=== PATIENT | male | born 1960 | race African-American/Black ===

== ENCOUNTER 2018-10-28 21:36 | Inpatient (IN) | payer BC, OTHER ==
[~2018-10-28] VITALS: Ht 172.7 cm; Wt 88.0 kg
[~2018-10-28 21:36] MED LIST: LISI10TA5 PO
[2018-10-28] MEDS ORDERED: HYDROCODONE/ACETAMINOPHEN 5/325MG TABLET PO ONE (23:15)
[2018-10-29] MEDS ORDERED: KETOROLAC 30MG/ML VIAL IM ONE (00:45)
[2018-10-29] MEDS ORDERED: ASPIRIN 81MG TABLET PO ONE (03:45)
[2018-10-29 04:08] LABS: HEMATOCRIT. 41.7 % (42.0-52.0); HEMOGLOBIN. 13.9 g/dL (14.0-18.0); MEAN CORPUSCULAR HEMOGLOBIN 30.8 pg (28.0-32.0); MEAN CORPUSCULAR VOLUME 92.7 fL (80.0-94.0); MEAN PLATELET VOLUME 9.6 fl (7.4-10.4); PLATELET 165 x1000/uL (130-400); RED CELL DISTRIBUTION WIDTH 14.1 % (11.6-14.6)
[2018-10-29 04:16] LABS: CHLORIDE 107 mEq/L (98-107)
[2018-10-29 06:07] LABS: CLARITY URINE CLEAR (CLEAR); COLOR URINE YELLOW (YELLOW); KETONES URINE TRACE (NEGATIVE); LEUKOCYTE ESTERASE URINE NEGATIVE (NEGATIVE); NITRITE URINE NEGATIVE (NEGATIVE); OCCULT BLOOD URINE NEGATIVE (NEGATIVE); PH URINE 5.5 (4.5-8.0); PROTEIN URINE 1+ (NEGATIVE); SPECIFIC GRAVITY URINE 1.026 (1.005-1.030); UROBILINOGEN URINE 0.2 E.U./dL (0.2-1.0)
[2018-10-29 06:25] LABS: PLATELET ESTIMATE NORMAL
[2018-10-29 08:00] VITALS: BP 146/107
[2018-10-29] MEDS ORDERED: ACETAMINOPHEN 650MG/20.3ML UDC GT PRN (08:45)
[2018-10-29] MEDS ORDERED: GUAIFENESIN 200MG/10ML SUGAR FREE UDC PO PRN (08:45)
[2018-10-29] MEDS ORDERED: IPRATROPIUM/ALBUTEROL 0.5-3(2.5)MG/3ML NEB INH PRN (08:45)
[2018-10-29] MEDS ORDERED: DIPHENHYDRAMINE 50MG/ML VIAL IV PRN (08:45)
[2018-10-29] MEDS ORDERED: NA PHOS,M-B/NA PHOS,DI-BA ENEMA 118ML PR PRN (08:45)
[2018-10-29] MEDS ORDERED: ACETAMINOPHEN 325MG TABLET PO PRN (08:45)
[2018-10-29] MEDS ORDERED: MAGNESIUM/ALUMINUM HYDROXIDE/SIMETHICONE 30ML UDC PO PRN (08:45)
[2018-10-29] MEDS ORDERED: DOCUSATE SODIUM 100MG CAPSULE PO PRN (08:45)
[2018-10-29] MEDS ORDERED: ACETAMINOPHEN 650MG SUPP PR PRN (08:45)
[2018-10-29] MEDS ORDERED: ONDANSETRON HCL 4MG/2ML INJ IV PRN (08:45)
[2018-10-29] MEDS ORDERED: CLONIDINE 0.1MG TABLET PO PRN (08:45)
[2018-10-29] MEDS: ENOXAPARIN 40MG/0.4ML SYR SUBCUT SCH (10:33)
[2018-10-29] MEDS: FUROSEMIDE 40MG/4ML VIAL IV SCH ×2 (10:36→17:45)
[2018-10-29] MEDS: HYDROCODONE/ACETAMINOPHEN 5/325MG TABLET PO PRN ×2 (12:19→23:43)
[2018-10-29 12:28] VITALS: BP 129/94
[2018-10-29] MEDS: SODIUM CHLORIDE 0.9% INJ 3ML FLUSH IVF SCH ×2 (14:00→21:12)
[2018-10-29 14:38] LABS: *AMPHETAMINES SCREEN URINE NEGATIVE (NEGATIVE); *BARBITURATES SCREEN URINE NEGATIVE (NEGATIVE); *BENZODIAZEPINES SCREEN URINE NEGATIVE (NEGATIVE); *COCAINE SCREEN URINE NEGATIVE (NEGATIVE); METHADONE URINE SCREEN NEGATIVE (NEGATIVE); OPIATES URINE SCREEN NEGATIVE (NEGATIVE)
[2018-10-29 14:39] LABS: CANNABINOID URINE SCREEN PRESUMTIVE POSITIVE (NEGATIVE); PHENCYCLIDINE URINE SCREEN NEGATIVE (NEGATIVE)
[2018-10-29 16:00] VITALS: BP_SYST 121; BP_SYST 161; BP_DIAS 82; BP_DIAS 86
[2018-10-29] MEDS ORDERED: INFLUENZA VIRUS VACCINE(AFLURIA) 0.5ML SYR IM ONE (18:00)
[2018-10-29] MEDS ORDERED: PNEUMOCOCCAL 23-VAL P-SAC VAC 0.5 ML IM ONE (18:00)
[2018-10-29] MEDS ORDERED: ALBUTEROL (0.083%) 2.5MG/3ML NEB HHN SCH (18:00)
[2018-10-29 18:41] LABS: CREATINE KINASE MB FRACTION 2.2 ng/mL (0.5-3.6)
[2018-10-29] MEDS ORDERED: IOHEXOL-350 100 ML BOTTLE ONE (20:38)
[2018-10-29 20:50] VITALS: BP 152/76
[2018-10-29] MEDS: CARVEDILOL 3.125 MG TABLET PO SCH (21:12)
[2018-10-30 00:05] VITALS: BP 137/90
[2018-10-30 03:05] LABS: CREATINE KINASE MB FRACTION 1.8 ng/mL (0.5-3.6)
[2018-10-30 04:00] VITALS: BP 142/96
[2018-10-30] MEDS: FUROSEMIDE 40MG/4ML VIAL IV SCH (06:12)
[2018-10-30] MEDS: SODIUM CHLORIDE 0.9% INJ 3ML FLUSH IVF SCH (06:12)
[2018-10-30] MEDS: HYDROCODONE/ACETAMINOPHEN 5/325MG TABLET PO PRN (06:23)
[2018-10-30 07:47] LABS: HEMATOCRIT. 43.9 % (42.0-52.0); HEMOGLOBIN. 14.3 g/dL (14.0-18.0); MEAN CORPUSCULAR HEMOGLOBIN 30.5 pg (28.0-32.0); MEAN CORPUSCULAR VOLUME 93.9 fL (80.0-94.0); MEAN PLATELET VOLUME 10.6 fl (7.4-10.4); PLATELET 178 x1000/uL (130-400); RED BLOOD CELL COUNT 4.67 mill/uL (4.7-6.1); RED CELL DISTRIBUTION WIDTH 14.5 % (11.6-14.6)
[2018-10-30 08:00] VITALS: BP 126/95
[2018-10-30] MEDS: CARVEDILOL 3.125 MG TABLET PO SCH (09:00)
[2018-10-30] MEDS: ENOXAPARIN 40MG/0.4ML SYR SUBCUT SCH (09:00)
[2018-10-30 09:20] LABS: CHLORIDE 103 mEq/L (98-107)
[2018-10-30 09:28] LABS: LDL CHOLESTEROL 111 mg/dL (5-100)
[2018-10-30 09:29] LABS: HDL CHOLESTEROL 67 mg/dL (40-59)
[2018-10-30 12:00] VITALS: BP 124/80
[2018-10-30 12:48] VITALS: BP 124/80
[2018-10-30] MEDS ORDERED: FURO-151 MT (13:35)
[2018-10-30 14:11] VITALS: BP 126/95
[2018-10-30 14:12] LABS: PLATELET ESTIMATE NORMAL
== END 2018-10-30 15:16 | disposition home or self-care (01) | DRG 292 ==
LOC: ER 21:36 → 7WST 10-29 05:15 → EDBEDREQ 10-29 05:18 → ENRESERV 10-29 06:39
PROVIDERS: ADMIT Family Medicine; ATTEND Family Medicine
DX: I11.0 Hypertensive heart disease with heart failure (principal); J98.11 Atelectasis; D63.8 Anemia in other chronic diseases classified elsewhere; F12.90 Cannabis use, unspecified, uncomplicated; I50.9 Heart failure, unspecified; I71.2 Thoracic aortic aneurysm, without rupture; F17.210 Nicotine dependence, cigarettes, uncomplicated; J44.9 Chronic obstructive pulmonary disease, unspecified; Z82.49 Family history of ischemic heart disease and other diseases of the circulatory system; Z83.3 Family history of diabetes mellitus; Z86.718 Personal history of other venous thrombosis and embolism; Z79.899 Other long term (current) drug therapy
CPT/HCPCS: 36415; 71045; 71275; 72192; 73522; 76775; 80061; 80305; 82550; 82553; 83036; 83880; 84484; 90686; 90732; 93005; 93306; 93971; 96372; 97162; 99285; J1650; J1885; J1940; Q9967

== ENCOUNTER 2019-04-18 08:55 | Emergency (ER) | payer BC, OTHER ==
[~2019-04-18] VITALS: Ht 172.7 cm; Wt 96.0 kg
[~2019-04-18 08:55] MED LIST changes: +FURO-151 MT; -LISI10TA5 PO
[2019-04-18 10:00] LABS: CLARITY URINE CLEAR (CLEAR); COLOR URINE YELLOW (YELLOW); KETONES URINE NEGATIVE (NEGATIVE); LEUKOCYTE ESTERASE URINE NEGATIVE (NEGATIVE); NITRITE URINE NEGATIVE (NEGATIVE); OCCULT BLOOD URINE NEGATIVE (NEGATIVE); PROTEIN URINE NEGATIVE (NEGATIVE); SPECIFIC GRAVITY URINE 1.016 (1.005-1.030); UROBILINOGEN URINE 0.2 E.U./dL (0.2-1.0)
[2019-04-18 10:32] LABS: BASOPHILS % 1.2 % (0.0-2.0); HEMATOCRIT. 43.6 % (42.0-52.0); HEMOGLOBIN. 14.5 g/dL (14.0-18.0); LYMPHOCYTES % 21.7 % (20.0-50.0); MEAN CORPUSCULAR HEMOGLOBIN 30.8 pg (28.0-32.0); MEAN CORPUSCULAR VOLUME 92.5 fL (80.0-94.0); MEAN PLATELET VOLUME 9.2 fl (7.4-10.4); MONOCYTES % 10.5 % (2.0-8.0); NEUTROPHILS % 65.6 % (40.0-76.0); PLATELET 178 x1000/uL (130-400); RED BLOOD CELL COUNT 4.72 mill/uL (4.7-6.1); RED CELL DISTRIBUTION WIDTH 15.2 % (11.6-14.6)
[2019-04-18 10:36] LABS: CHLORIDE 105 mEq/L (98-107)
[2019-04-18 10:39] LABS: ETHANOL BLOOD < 10 mg/dL
[2019-04-18 10:59] VITALS: BP 138/89
== END 2019-04-18 10:55 | disposition home or self-care (01) ==
LOC: ER 08:55
DX: R20.2 Paresthesia of skin (principal); I10 Essential (primary) hypertension; F12.10 Cannabis abuse, uncomplicated; Z98.890 Other specified postprocedural states; Z79.899 Other long term (current) drug therapy
CPT/HCPCS: 36415; 80320; 82962; 99283; G0480